=== PATIENT | male | born 1995 | race Caucasian/White ===

== ENCOUNTER 2021-03-19 21:55 | Emergency (ER) | payer SELFPAY ==
--- NOTE | 2021-03-19 22:53 | NUR ---
called, no show
--- NOTE | 2021-03-19 23:10 | NUR ---
called, no show
--- NOTE | 2021-03-19 23:48 | NUR ---
CALLED IN LOBBY AND OUTSIDE NO ANSWER.
--- NOTE | 2021-03-19 23:53 | NUR ---
CALLED TO CELL PHONE NO ANSWER
== END 2021-03-19 23:45 | disposition left against medical advice (07) ==
LOC: MED 21:55
DX: R07.9 Chest pain, unspecified (principal); Z53.21 Procedure and treatment not carried out due to patient leaving prior to being seen by health care provider